=== PATIENT | male | born 1995 | race Caucasian/White ===

== ENCOUNTER 2018-07-02 13:33 | Emergency (ER) | payer BC ==
[2018-07-02 13:52] VITALS: BP 124/84
--- NOTE | 2018-07-02 14:01 | UC ---
UC General HPI - HPI Summary HPI Summary: FEVER, CHILLS, SORE THROAT AND SWOLLEN NECK GLANDS SINCE LAST PM. TOOK IB TODAY. - History of Current Complaint Chief Complaint: UCRespiratory Stated Complaint: FEVER,CHILLS Time Seen by Provider: 07/02/18 13:50 Hx Obtained From: Patient Onset/Duration: Gradual Onset Timing: Constant Pain Intensity: 0 - Allergy/Home Medications Allergies/Adverse Reactions: Allergies Allergy/AdvReac Type Severity Reaction Status Date / Time No Known Allergies Allergy Verified 07/02/18 13:48 Home Medications: Home Medications NK [No Home Medications Reported] 07/02/18 [History Confirmed 07/02/18] PMH/Surg Hx/FS Hx/Imm Hx Previously Healthy: Yes - Surgical History Surgical History: Yes Surgery Procedure, Year, and Place: appy - Family History Known Family History: Positive: Non-Contributory - Social History Occupation: Student Lives: Dormitory/Roommates Alcohol Use: Occasionally Substance Use Type: None Smoking Status (MU): Never Smoked Tobacco Review of Systems All Other Systems Reviewed And Are Negative: Yes Constitutional: Positive: Fever, Chills. Negative: Fatigue Skin: Positive: Negative Eyes: Positive: Negative ENT: Positive: Sore Throat Respiratory: Positive: Negative Cardiovascular: Positive: Negative Gastrointestinal: Positive: Negative Genitourinary: Positive: Negative Motor: Positive: Negative Neurovascular: Positive: Negative Musculoskeletal: Positive: Negative Neurological: Positive: Negative Psychological: Positive: Negative Physical Exam Triage Information Reviewed: Yes Appearance: Well-Appearing Vital Signs: Initial Vital Signs Temp 98.6 F 07/02/18 13:48 Pulse 106 07/02/18 13:48 Resp 20 07/02/18 13:48 BP 124/84 07/02/18 13:48 Pulse Ox 99 07/02/18 13:48 Eyes: Positive: Conjunctiva Clear ENT: Positive: Pharyngeal erythema - SLIGHT, TMs normal. Negative: Nasal congestion, Nasal drainage Neck: Positive: Supple, Tenderness @ - PERITONSILAR NODES THAT ARE SWOLLEN. Negative: Nuchal Rigidity Respiratory: Positive: Lungs clear, Normal breath sounds Cardiovascular: Positive: RRR, No Murmur Abdomen Description: Positive: Nontender, No Organomegaly, Soft Bowel Sounds: Positive: Present Musculoskeletal: Positive: ROM Intact Neurological: Positive: Alert Psychological: Positive: Age Appropriate Behavior Skin Exam: Normal Diagnostics - Laboratory Diagnostic Studies Completed/Ordered: rapid strep=neg Course/Dx - Course Course Of Treatment: rapid strep=neg. tx supportive - Diagnoses Provider Diagnosis: Pharyngitis Discharge - Sign-Out/Discharge Documenting (check all that apply): Patient Departure All imaging exams completed and their final reports reviewed: No Studies - Discharge Plan Condition: Stable Disposition: HOME Patient Education Materials: Pharyngitis (ED) Referrals: Rita HERNANDEZ,Bola Massey [Primary Care Provider] - [facility] [Outside] Additional Instructions: FOLLOW UP WITH PRIMARY [facility]ARE OR [facility] IF NOT BETTER IN 5 DAYS OR SOONER IF WORSE. - Billing Disposition and Condition Condition: STABLE Disposition: Home
== END 2018-07-02 15:07 | disposition home or self-care (01) ==
LOC: UCCORT 13:33
DX: J02.9 Acute pharyngitis, unspecified (principal)
CPT/HCPCS: 87651; 99201; G0463

== ENCOUNTER 2018-09-15 13:56 | Emergency (ER) | payer BC ==
[2018-09-15 14:58] VITALS: BP 112/72
--- NOTE | 2018-09-15 15:04 | UC ---
UC General HPI - HPI Summary HPI Summary: ill for 3rd time in 2 months. mother concerned he may have mono. most recently noted fever, scratchy throat, headache and fatigue since saturday which is now much improved. - History of Current Complaint Chief Complaint: UCGeneralIllness Stated Complaint: FEVER,FATIGUE Time Seen by Provider: 09/15/18 14:55 Hx Obtained From: Patient Pain Intensity: 0 - Allergy/Home Medications Allergies/Adverse Reactions: Allergies Allergy/AdvReac Type Severity Reaction Status Date / Time No Known Allergies Allergy Verified 07/02/18 13:48 Home Medications: Home Medications Pheniramine/P-Eph/Acetaminophn [Theraflu Flu & Sore Throat] 1 each PO ONCE 09/15 [History Confirmed 09/15/18] PMH/Surg Hx/FS Hx/Imm Hx Previously Healthy: Yes - Surgical History Surgical History: Yes Surgery Procedure, Year, and Place: appy - Family History Known Family History: Positive: Non-Contributory - Social History Occupation: Student Lives: Dormitory/Roommates Alcohol Use: Weekly Substance Use Type: None Smoking Status (MU): Never Smoked Tobacco - Immunization History Vaccination Up to Date: Yes Review of Systems All Other Systems Reviewed And Are Negative: Yes Constitutional: Positive: Fever, Fatigue Skin: Positive: Negative Eyes: Positive: Negative ENT: Positive: Sore Throat - "scratchy" Respiratory: Positive: Negative Cardiovascular: Positive: Negative Gastrointestinal: Positive: Negative Genitourinary: Positive: Negative Motor: Positive: Negative Neurovascular: Positive: Negative Musculoskeletal: Positive: Negative Neurological: Positive: Headache Psychological: Positive: Negative Physical Exam Triage Information Reviewed: Yes Appearance: Well-Appearing Vital Signs: Initial Vital Signs Temp 98.4 F 09/15/18 14:56 Pulse 71 09/15/18 14:56 Resp 18 09/15/18 14:56 BP 112/72 09/15/18 14:56 Pulse Ox 98 09/15/18 14:56 Vital Signs Reviewed: Yes Eyes: Positive: Conjunctiva Clear ENT: Positive: Pharynx normal, TMs normal. Negative: Nasal congestion, Nasal drainage Neck: Positive: Supple, Nontender, No Lymphadenopathy Respiratory: Positive: Lungs clear, Normal breath sounds, No respiratory distress Cardiovascular: Positive: RRR, No Murmur Abdomen Description: Positive: Nontender, No Organomegaly, Soft. Negative: Distended, Guarding, Hepatomegaly, Splenomegaly Bowel Sounds: Positive: Present Musculoskeletal: Positive: ROM Intact Neurological: Positive: Alert Psychological: Positive: Age Appropriate Behavior Skin Exam: Normal Skin: Negative: Rashes Diagnostics - Laboratory Diagnostic Studies Completed/Ordered: influenza A+ Course/Dx - Differential Dx - Multi-Symptom Differential Diagnoses: Other - viral syndrom, influenza. doubt mono - Diagnoses Provider Diagnosis: Influenza A Discharge - Sign-Out/Discharge Documenting (check all that apply): Patient Departure All imaging exams completed and their final reports reviewed: No Studies - Discharge Plan Condition: Stable Disposition: HOME Patient Education Materials: Influenza (ED) Forms: *School Release Referrals: [facility] [, APPLICATION, OTHER] - Additional Instructions: follow up with health center if not better in 5 days or sooner if worse - Billing Disposition and Condition Condition: STABLE Disposition: Home
[2018-09-15 15:19] LABS: Influenza A Molecular POSITIVE (Negative)
[2018-09-15 18:53] LABS: ABS Basophils 0 10^3/ul (0-0.2); ABS Eosinophils 0.2 10^3/ul (0-0.6); ABS Lymphocytes 1.4 10^3/ul (1.0-4.8); ABS Monocytes 0.5 10^3/ul (0-0.8); ABS Neutrophils 2.3 10^3/ul (1.5-7.7); ABS Nucleated RBC 0 10^3/ul; Eosinophil % 3.6 %; Hematocrit 45 % (42-52); Hemoglobin 15.3 g/dl (14.0-18.0); Lymphocyte % 32.4 %; Mean Corpuscular HGB Conc 34 g/dl (31-36); Mean Corpuscular Hemoglobin 31 pg (27-31); Mean Corpuscular Volume 89 fL (80-94); Mean Platelet Volume 8.4 fL (7.4-10.4); Nucleated Red Blood Cells % 0.3; Platelet Count 131 10^3/ul (150-450); Red Blood Count 4.99 10^6/ul (4.00-5.40); Red Cell Distribution Width 13 % (10.5-15); White Blood Count 4.4 10^3/ul (3.5-10.8)
[2018-09-18 11:42] LABS: EBV Capsid Ag IgG Ab Positive (Negative); EBV Capsid Ag IgM Ab Negative (Negative); Epstein-Barr Nuclear Antigen Positive (Negative)
--- NOTE | 2018-09-18 14:25 | UC ---
- Progress Note Progress Note: Melissa Nur positive IgG and nuclear AG, negative IgM. Findings consistent with past infection but no acute illness. Nursing to inform patient of results. No change in POC. Course/Dx - Diagnoses Provider Diagnoses: Influenza A Discharge - Sign-Out/Discharge Documenting (check all that apply): Post-Discharge Follow Up All imaging exams completed and their final reports reviewed: No Studies - Discharge Plan Condition: Stable Disposition: HOME Patient Education Materials: Influenza (ED) Forms: *School Release Referrals: [facility] [, APPLICATION, OTHER] - Additional Instructions: follow up with health center if not better in 5 days or sooner if worse - Billing Disposition and Condition Condition: STABLE Disposition: Home
== END 2018-09-15 15:33 | disposition home or self-care (01) ==
LOC: UCCORT 13:56
DX: J10.1 Influenza due to other identified influenza virus with other respiratory manifestations (principal)
CPT/HCPCS: 36415; 85025; 86308; 86664; 86665; 99211; G0463

== ENCOUNTER 2019-08-26 18:53 | Emergency (ER) | payer BC ==
[2019-08-26 19:32] VITALS: BP 133/73
--- NOTE | 2019-08-26 19:43 | UC ---
Respiratory Complaint HPI - HPI Summary HPI Summary: 24 year old male with no PMH, no medications, otherwise health presents iwth cough, sometimes productive x 1 month. Denies weight changes, fatigue, fever, chills, appetite changes, sinus congestion, throat/ ear pain. States had the flu about a month ago, recovered from that but since has had a lingering cough that can be worse in the AM. no shortness of breath, is able to work out at the gym. Concerned about PNA, bronchitis - History of Current Complaint Chief Complaint: UCRespiratory Stated Complaint: COUGH/CONGESTION Time Seen by Provider: 08/26/19 19:41 Hx Obtained From: Patient Onset/Duration: Gradual Onset, Lasting Weeks Timing: Intermittent Episodes Severity Currently: None Pain Intensity: 0 Pain Scale Used: 0-10 Numeric Character: Cough: Nonproductive Aggravating Factors: Other - worse in AM - Allergies/Home Medications Allergies/Adverse Reactions: Allergies Allergy/AdvReac Type Severity Reaction Status Date / Time No Known Allergies Allergy Verified 08/26/19 19:28 PMH/Surg Hx/FS Hx/Imm Hx Previously Healthy: Yes - healthy - Surgical History Surgical History: Yes Surgery Procedure, Year, and Place: appy - Family History Known Family History: Positive: Non-Contributory - Social History Occupation: Student Alcohol Use: Occasionally Substance Use Type: None Smoking Status (MU): Never Smoked Tobacco - Immunization History Vaccination Up to Date: Yes Review of Systems All Other Systems Reviewed And Are Negative: Yes Constitutional: Positive: Negative Skin: Positive: Negative Eyes: Positive: Negative ENT: Positive: Negative Respiratory: Positive: Cough Cardiovascular: Positive: Negative Gastrointestinal: Positive: Negative Neurological: Positive: Negative Psychological: Positive: Negative Is Patient Immunocompromised?: No Physical Exam Triage Information Reviewed: Yes Appearance: Well-Appearing, No Pain Distress Vital Signs: Initial Vital Signs Temp 98.9 F 08/26/19 19:28 Pulse 86 08/26/19 19:28 Resp 16 08/26/19 19:28 BP 133/73 08/26/19 19:28 Pulse Ox 99 08/26/19 19:28 Vital Signs Reviewed: Yes Eyes: Positive: Conjunctiva Clear ENT: Positive: Pharynx normal, TMs normal, Uvula midline. Negative: Sinus tenderness Neck: Positive: Supple, Nontender, No Lymphadenopathy Respiratory: Positive: Chest non-tender, Lungs clear, Normal breath sounds, No respiratory distress, No accessory muscle use Cardiovascular: Positive: RRR, No Murmur Neurological Exam: Normal Psychological Exam: Normal Skin Exam: Normal Respiratory Course/Dx - Course Course Of Treatment: bronchitis - Steroid pack as directed for cough symptoms - Increase fluid intake - Over the counter medications as needed for symptoms - Return with shortness of breath, difficulty breathing/ swallowing, fever > 102. Follow up in 1-2 weeks if no improvemnt for possible imaging - Differential Dx/Diagnosis Provider Diagnosis: Bronchitis Discharge ED - Sign-Out/Discharge Documenting (check all that apply): Patient Departure All imaging exams completed and their final reports reviewed: No Studies - Discharge Plan Condition: Good Disposition: HOME Prescriptions: methylPREDNISolone [Medrol] 1 packet PO . DIRECT #1 [id number] Patient Education Materials: Acute Bronchitis (ED) Referrals: Rita HERNANDEZ,Bola Massey [Primary Care Provider] - Additional Instructions: - Steroid pack as directed for cough symptoms - Increase fluid intake - Over the counter medications as needed for symptoms - Return with shortness of breath, difficulty breathing/ swallowing, fever > 102. - Billing Disposition and Condition Condition: GOOD Disposition: Home
== END 2019-08-26 20:03 | disposition home or self-care (01) ==
LOC: UCCORT 18:53
DX: J40 Bronchitis, not specified as acute or chronic (principal)
CPT/HCPCS: 99212; G0463

== ENCOUNTER 2019-09-30 21:00 | Emergency (ER) | payer BC ==
[2019-09-30 21:43] VITALS: BP 126/81
[2019-09-30] MEDS ORDERED: Lidocaine 1% MPF ** 5 ML VIAL IM ONE (21:59)
[2019-09-30] MEDS ORDERED: cefTRIAXone VIAL(*) 250 MG VIAL IM ONE (21:59)
[2019-09-30] MEDS ORDERED: Azithromycin TAB* 250 MG PO ONE (22:00)
--- NOTE | 2019-09-30 22:04 | UC ---
Complaint Female HPI - HPI Summary HPI Summary: 24 yo male who is asymptomatic presents requesting treatment for chlamdyia States a person he had an encounter with call him and told he she had been treated for chlamdyis does not desire HIV/RPR etc no hx std - History Of Current Complaint Chief Complaint: UCGU Stated Complaint: PERSONAL Time Seen by Provider: 09/30/19 21:45 Hx Obtained From: Patient Onset/Duration: Other - na Severity Currently: None Pain Intensity: 0 Aggravating Factor(s): Other - NA Alleviating Factor(s): Other - NA Associated Signs And Symptoms: Negative: Fever, Back Pain, Vaginal Bleeding/ Discharge, Vaginal Discharge, Nausea, Vomiting(# Of Episodes =), Genital Swelling, Genital Blisters, Retained Foregin Body (Specify) - Allergies/Home Medications Allergies/Adverse Reactions: Allergies Allergy/AdvReac Type Severity Reaction Status Date / Time No Known Allergies Allergy Verified 09/30/19 21:44 Home Medications: Home Medications NK [No Home Medications Reported] 09/30/19 [History Confirmed 09/30/19] PMH/Surg Hx/FS Hx/Imm Hx Previously Healthy: Yes - Surgical History Surgical History: Yes Surgery Procedure, Year, and Place: appy - Family History Known Family History: Positive: Hypertension, Diabetes - Social History Alcohol Use: Occasionally Substance Use Type: None Smoking Status (MU): Never Smoked Tobacco - Immunization History Vaccination Up to Date: Yes Review of Systems All Other Systems Reviewed And Are Negative: Yes Constitutional: Positive: Negative Skin: Positive: Negative Eyes: Positive: Negative ENT: Positive: Negative Respiratory: Positive: Negative Cardiovascular: Positive: Negative Gastrointestinal: Positive: Negative Genitourinary: Positive: Negative Motor: Positive: Negative Neurovascular: Positive: Negative Musculoskeletal: Positive: Negative Neurological/Mental Status: Positive: Negative Psychological: Positive: Negative Physical Exam Triage Information Reviewed: Yes Appearance: Well-Appearing, No Pain Distress, Well-Nourished Vital Signs: Initial Vital Signs Temp 99 F 09/30/19 21:39 Pulse 92 09/30/19 21:39 Resp 18 09/30/19 21:39 BP 126/81 09/30/19 21:39 Pulse Ox 100 09/30/19 21:39 Vital Signs Reviewed: Yes Eyes: Positive: Conjunctiva Clear ENT: Positive: Hearing grossly normal, Uvula midline. Negative: Nasal congestion, Nasal drainage, Tonsillar swelling, Tonsillar exudate, Trismus, Muffled voice, Hoarse voice Dental Exam: Normal Neck: Positive: Supple, Nontender, No Lymphadenopathy Respiratory: Positive: Lungs clear, Normal breath sounds, No respiratory distress Cardiovascular: Positive: RRR Abdominal Exam: Normal Bowel Sounds: Positive: Present Musculoskeletal: Positive: ROM Intact, No Edema Neurological: Positive: Alert Psychological Exam: Normal Skin Exam: Normal Complaint Female Dx - Differential Dx/Diagnosis Provider Diagnosis: Exposure to chlamydia Discharge ED - Sign-Out/Discharge Documenting (check all that apply): Patient Departure All imaging exams completed and their final reports reviewed: No Studies - Discharge Plan Condition: Stable Disposition: HOME Patient Education Materials: Sexually Transmitted Diseases (ED) Referrals: Rita HERNANDEZ,Bola Massey [Primary Care Provider] - If Needed - Billing Disposition and Condition Condition: STABLE Disposition: Home
[2019-10-02 09:55] LABS: Chlamydia trachomatis NAA Negative (Negative); Neisseria gonorrhoeae (GC) NAA Negative (Negative)
== END 2019-09-30 22:34 | disposition home or self-care (01) ==
LOC: UCCORT 21:00
DX: Z20.2 Contact with and (suspected) exposure to infections with a predominantly sexual mode of transmission (principal)
CPT/HCPCS: 87491; 87591; 96372; 99212; A9270-GY; G0463; J0696